=== PATIENT | female | born 1950 | race Caucasian/White ===

== ENCOUNTER 2018-05-22 13:44 | Day surgery (SDC) | payer BC ==
[~2018-05-22] VITALS: Ht 147.3 cm; Wt 46.3 kg
[2018-05-22] MEDS ORDERED: OMEPRAZOLE20 M2 PO (16:14)
[2018-05-22] MEDS ORDERED: B12 (16:14)
[2018-05-22] MEDS ORDERED: ATENOLOL25 MG PO (16:14)
[2018-05-22] MEDS ORDERED: LIPITOR10 M1 PO (16:14)
[2018-05-22] MEDS ORDERED: FOLIC ACID1 MG PO (16:14)
[2018-05-22] MEDS ORDERED: BAYER ASPIRIN E81 MG PO (16:14)
[2018-05-22 18:14] VITALS: BP 131/69
== END 2018-05-22 18:20 | disposition home or self-care (01) | DRG 392 ==
LOC: ENDO 13:44 → ORM 19:00
PROVIDERS: ATTEND Internal Medicine Gastroenterology
PROC: 0D758ZZ Dilation of Esophagus, Via Natural or Artificial Opening Endoscopic (ICD-10-PCS; principal; 2018-05-22)
PROC: 0DB48ZX Excision of Esophagogastric Junction, Via Natural or Artificial Opening Endoscopic, Diagnostic (ICD-10-PCS; 2018-05-22)
DX: K22.2 Esophageal obstruction (principal); K22.70 Barrett's esophagus without dysplasia; K21.0 Gastro-esophageal reflux disease with esophagitis; Q40.8 Other specified congenital malformations of upper alimentary tract; K29.70 Gastritis, unspecified, without bleeding; K44.9 Diaphragmatic hernia without obstruction or gangrene; K31.7 Polyp of stomach and duodenum; K25.9 Gastric ulcer, unspecified as acute or chronic, without hemorrhage or perforation